=== PATIENT | female | born 1980 | race Caucasian/White ===

== ENCOUNTER 2023-03-25 14:15 | Inpatient (IN) | payer OTHER ==
[~2023-03-25] VITALS: Ht 170.2 cm; Wt 63.5 kg
[2023-03-25 14:47] VITALS: BP 123/86; PULSE 111; RESP 18; TEMP 97.7; O2SAT 98
[2023-03-25 15:52] LABS: HEMATOCRIT 33.9 % (36-48); HEMOGLOBIN 11.6 g/dL (12.0-16.0); MEAN CORPUSCULAR HEMOGLOBIN 39 pg (27-31); MEAN CORPUSCULAR HGB CONC 34 g/dL (33-37); MEAN CORPUSCULAR VOLUME 113.8 fL (80-94); PLATELET COUNT (AUTO) 441 K/uL (140-450); RED BLOOD CELL COUNT(AUTO) 2.98 MIL/uL (4.20-5.40); RED CELL DISTRIBUTION WIDTH 15.7 % (11.6-13.7); WHITE BLOOD COUNT (AUTO) 12.2 K/uL (4.8-10.8)
[2023-03-25 15:55] LABS: APPEARANCE,URINE CLEAR (CLEAR); BILIRUBIN,URINE 3+ (NEGATIVE); BLOOD, URINE NEGATIVE (NEGATIVE); COLOR,URINE YELLOW (YELLOW); LEUKOCYTE ESTERASE ,URINE TRACE (NEGATIVE); NITRITE, URINE POSITIVE (NEGATIVE); PH,URINE 5.5 (5.0-9.0); PROTEIN,URINE 1+ (NEGATIVE); UGLUCOSE TRACE (NEGATIVE)
[2023-03-25] MEDS: NACL 0.9% 1,000 ML IV SCH ×3 (15:56→18:46)
[2023-03-25 16:15] LABS: INR 0.94 (0.8-1.2); PARTIAL THROMBOPLASTIN TIME 22.3 secs (22-35.6); PROTHROMBIN TIME 9.9 secs (10.8-13.4)
[2023-03-25] MEDS ORDERED: ONDANSETRON 4 MG/2 ML VIAL IVP ONE (16:15)
[2023-03-25] MEDS ORDERED: MORPHINE SULFATE 4 MG/ML SYR IVP ONE (16:15)
[2023-03-25 16:16] LABS: EOSINOPHILS % (MANUAL) 0 % (0-4); LYMPHOCYTES % (MANUAL) 11 % (20-46); MONOCYTES % (MANUAL) 10 % (5-12)
[2023-03-25 16:17] LABS: ANISOCYTOSIS 1+; BASOPHILS % (MANUAL) 0 % (0-2); PLATELET ESTIMATE ADEQUATE; POIKILOCYTOSIS 3+; STOMATOCYTES 3+
[2023-03-25] MEDS ORDERED: NACL 0.9% 1,000 ML IV ONE (16:20)
[2023-03-25 16:22] LABS: LACTIC ACID 3.7 mmol/L (0.4-2.0)
[2023-03-25 16:25] LABS: ALANINE AMINOTRANSFERASE 93 U/L (12-78); ALKALINE PHOSPHATASE 220 U/L (50-136); ANION GAP 19.9 (8-16); ASPARTATE AMINOTRANSFERASE 246 U/L (15-37); CALCIUM 9.3 mg/dL (8.5-10.1); CARBON DIOXIDE 22.2 mmol/L (21-32); CHLORIDE 92 mmol/L (98-107); CREATININE 0.6 mg/dL (0.6-1.3); GFR ARICAN-AMERICAN 142 mL/min (>90); GFR NON ARICAN-AMERICAN 117 mL/min (>90); GLUCOSE 105 mg/dL (74-106); LIPASE 91 U/L (16-77); POTASSIUM 3.1 mmol/L (3.5-5.1); SODIUM SERUM 131 mmol/L (136-145); TOTAL BILIRUBIN 10.5 mg/dL (0.0-1.0); UREA NITROGEN, BLOOD 9 mg/dL (7-18)
[2023-03-25] MEDS ORDERED: cefTRIAXone 1,000 MG VIAL ONE (16:25)
[2023-03-25 16:26] LABS: ICTOTEST POSITIVE (NEGATIVE)
[2023-03-25 16:28] LABS: BACTERIA,URINE 1+ /HPF (None Seen); MUCUS,URINE 1+ /LPF (None Seen); OTHER CASTS, URINE EPITHELIAL CASTS 1+ /LPF (None Seen); RBC,URINE 0-5 /HPF (0-5); SQUAMOUS EPITHELIAL CELL,UR 20-50 /LPF (0-3 (FEW)); TRICHOMONAS,URINE None Seen /HPF (None Seen); YEAST,URINE None Seen /HPF (None Seen)
[2023-03-25 16:30] LABS: ACETAMINOPHEN < 0.5 ug/ml (10-30)
[2023-03-25] MEDS ORDERED: POTASSIUM CHLORIDE 20% 40 MEQ/15 ML UDC PO ONE (17:20)
[2023-03-25] MEDS ORDERED: CEPH-588 PO (17:20)
[2023-03-25] MEDS ORDERED: ONDANSETRON 4 MG/2 ML VIAL IVP PRN (18:10)
[2023-03-25] MEDS ORDERED: ACETAMINOPHEN 325 MG TAB PO PRN (18:10)
[2023-03-25] MEDS ORDERED: POTASSIUM CHLORIDE 10 MEQ TABER PO PRN (18:10)
[2023-03-25] MEDS ORDERED: KCL 20 MEQ IN 100 mL PREMIX 200 ML IV PRN (18:10)
[2023-03-25] MEDS ORDERED: LORazepam 2 MG/ML VIAL IVP ONE ×2 (21:05→22:40)
[2023-03-25] MEDS: LORazepam 1 MG TAB PO SCH (23:19)
[2023-03-25] MEDS: POTASSIUM CHL 20 MEQ/NACL 0.9% 1,000 ML IV SCH (23:20)
[2023-03-26] MEDS: LORazepam 1 MG TAB PO SCH ×3 (05:22→20:37)
[2023-03-26] MEDS: POTASSIUM CHL 20 MEQ/NACL 0.9% 1,000 ML IV SCH (06:45)
[2023-03-26 06:51] LABS: HEMATOCRIT 27.2 % (36-48); HEMOGLOBIN 9.6 g/dL (12.0-16.0); MEAN CORPUSCULAR HEMOGLOBIN 41 pg (27-31); MEAN CORPUSCULAR HGB CONC 35 g/dL (33-37); PLATELET COUNT (AUTO) 336 K/uL (140-450); RED BLOOD CELL COUNT(AUTO) 2.36 MIL/uL (4.20-5.40); RED CELL DISTRIBUTION WIDTH 15.9 % (11.6-13.7); WHITE BLOOD COUNT (AUTO) 8.9 K/uL (4.8-10.8)
[2023-03-26 07:00] LABS: INR 0.98 (0.8-1.2); PARTIAL THROMBOPLASTIN TIME 22.8 secs (22-35.6); PROTHROMBIN TIME 10.3 secs (10.8-13.4)
[2023-03-26 07:32] LABS: ANISOCYTOSIS 1+; PLATELET ESTIMATE ADEQUATE; STOMATOCYTES 2+
[2023-03-26 07:33] LABS: LYMPHOCYTES % (MANUAL) 13 % (20-46); MONOCYTES % (MANUAL) 9 % (5-12)
[2023-03-26 07:35] LABS: POIKILOCYTOSIS 2+
[2023-03-26 07:50] LABS: ALBUMIN 2.1 g/dL (3.4-5.0); ANION GAP 12.7 (8-16); CALCIUM 7.6 mg/dL (8.5-10.1); CARBON DIOXIDE 23.3 mmol/L (21-32); CREATININE 0.6 mg/dL (0.6-1.3); MAGNESIUM 1.3 mg/dL (1.8-2.4); PHOSPHORUS 2.5 mg/dL (2.5-4.9); TOTAL BILIRUBIN 8.6 mg/dL (0.0-1.0); TOTAL PROTEIN, SERUM 5.2 g/dL (6.4-8.2)
[2023-03-26] MEDS: NACL 0.9% 1,000 ML IV SCH (10:45)
[2023-03-26] MEDS: THIAMINE 100 MG TAB PO SCH (11:42)
[2023-03-26] MEDS: MULTIVITAMIN 1 TAB PO SCH (11:42)
[2023-03-26] MEDS: DOCUSATE SODIUM 100 MG GELCAP PO SCH (11:42)
[2023-03-26] MEDS: FOLIC ACID 1 MG TAB PO SCH (11:43)
[2023-03-26] MEDS: chlordiazePOXIDE 25 MG CAP PO SCH ×2 (13:18→17:41)
[2023-03-26 17:25] VITALS: BP 124/84; PULSE 102; RESP 20; TEMP 98.2; O2SAT 98
[2023-03-26] MEDS: HYDROmorphone 1 MG/ML AMP IVP PRN (17:43)
[2023-03-26 18:30] VITALS: PULSE 84
[2023-03-26 19:34] VITALS: PULSE 111; RESP 20
[2023-03-26 19:54] VITALS: PULSE 111
[2023-03-26 20:00] VITALS: BP 127/87; PULSE 103; PULSE 107; RESP 19; RESP 20; TEMP 97.8; O2SAT 98
[2023-03-27] VITALS: BP 120/84; PULSE 110; PULSE 112; RESP 19; TEMP 98.2; O2SAT 98
[2023-03-27] MEDS: HYDROmorphone 1 MG/ML AMP IVP PRN ×4 (00:20→22:07)
[2023-03-27] MEDS: NACL 0.9% 1,000 ML IV SCH ×3 (00:21→21:27)
[2023-03-27] MEDS: LORazepam 1 MG TAB PO PRN ×2 (00:21→15:36)
[2023-03-27 04:00] VITALS: BP 116/79; PULSE 94; PULSE 98; RESP 18; TEMP 98.4; O2SAT 98
[2023-03-27] MEDS: LORazepam 1 MG TAB PO SCH ×3 (05:08→21:26)
[2023-03-27 06:07] LABS: HEPATITIS A ANTIBODY IGM Negative (Negative); HEPATITIS B CORE AB TOTAL Negative (Negative); HEPATITIS B CORE, IGM Negative (Negative); HEPATITIS B SURFACE ANTIBODY Non Reactive (.); HEPATITIS B SURFACE ANTIGEN Negative (Negative); HEPATITIS C VIRUS ANTIBODY Non Reactive (Non Reactive)
[2023-03-27 07:05] LABS: BASOPHILS # (AUTO) 0.1 K/uL (0.00-0.22); BASOPHILS % (AUTO) 0.9 % (0.0-2.0); EOSINOPHILS # (AUTO) 0.1 K/uL (0-0.4); HEMATOCRIT 25.8 % (36-48); LYMPHOCYTES # (AUTO) 3.9 K/uL (2.5-16.5); LYMPHOCYTES % (AUTO) 42.9 % (20.5-51.1); MEAN CORPUSCULAR HEMOGLOBIN 40 pg (27-31); MEAN CORPUSCULAR HGB CONC 35 g/dL (33-37); MEAN CORPUSCULAR VOLUME 115.7 fL (80-94); MONOCYTES # (AUTO) 0.7 K/uL (0.8-1.0); MONOCYTES % (AUTO) 8.1 % (1.7-9.3); NEUTROPHILS # (AUTO) 4.3 K/uL (1.8-7.7); NEUTROPHILS % (AUTO) 47.1 % (42.2-75.2); PLATELET COUNT (AUTO) 320 K/uL (140-450); RED BLOOD CELL COUNT(AUTO) 2.23 MIL/uL (4.20-5.40); RED CELL DISTRIBUTION WIDTH 15.8 % (11.6-13.7); WHITE BLOOD COUNT (AUTO) 9.1 K/uL (4.8-10.8)
[2023-03-27 07:13] LABS: INR 0.98 (0.8-1.2); PROTHROMBIN TIME 10.3 secs (10.8-13.4)
[2023-03-27 07:16] LABS: ALBUMIN 2.1 g/dL (3.4-5.0); ANION GAP 12.9 (8-16); CALCIUM 7.9 mg/dL (8.5-10.1); CARBON DIOXIDE 24.8 mmol/L (21-32); CREATININE 0.5 mg/dL (0.6-1.3); MAGNESIUM 1.4 mg/dL (1.8-2.4); PHOSPHORUS 2.6 mg/dL (2.5-4.9); POTASSIUM 3.7 mmol/L (3.5-5.1); TOTAL BILIRUBIN 8.9 mg/dL (0.0-1.0); TOTAL PROTEIN, SERUM 5.2 g/dL (6.4-8.2)
[2023-03-27 08:00] VITALS: BP 108/71; PULSE 100; PULSE 102; RESP 15; TEMP 97.9; O2SAT 93
[2023-03-27] MEDS: DOCUSATE SODIUM 100 MG GELCAP PO SCH (09:06)
[2023-03-27] MEDS: FOLIC ACID 1 MG TAB PO SCH (09:06)
[2023-03-27] MEDS: THIAMINE 100 MG TAB PO SCH (09:06)
[2023-03-27] MEDS: MULTIVITAMIN 1 TAB PO SCH (09:06)
[2023-03-27] MEDS: chlordiazePOXIDE 25 MG CAP PO SCH ×3 (09:07→17:24)
[2023-03-27] MEDS: MAG SULF 2000 MG/WATER PREMIX 50 ML IV PRN (09:14)
[2023-03-27 09:15] LABS: HEPATITIS A ANTIBODY TOTAL Positive (Negative)
[2023-03-27 12:00] VITALS: BP 118/85; PULSE 112; PULSE 116; RESP 18; TEMP 98.3; O2SAT 96
[2023-03-27] MEDS: HYDROcodone/APAP 5/325 MG 1 TAB TAB PO PRN ×2 (12:04→16:07)
[2023-03-27] MEDS ORDERED: PANTOPRAZOLE 40 MG TABEC PO ONE (12:56)
[2023-03-27] MEDS: PANTOPRAZOLE 40 MG TABEC PO SCH ×2 (12:58→21:26)
[2023-03-27 16:00] VITALS: BP 116/81; PULSE 106; PULSE 110; RESP 18; TEMP 98.4; O2SAT 98
[2023-03-27 20:00] VITALS: BP 110/74; PULSE 101; PULSE 99; RESP 19; TEMP 98.4; O2SAT 93; O2SAT 98
[2023-03-28] VITALS: BP 101/72; PULSE 91; RESP 19; TEMP 97.8; O2SAT 98
[2023-03-28 04:00] VITALS: BP 109/74; PULSE 94; PULSE 99; RESP 18; TEMP 98.2; O2SAT 98
[2023-03-28] MEDS: LORazepam 1 MG TAB PO SCH ×3 (05:06→20:28)
[2023-03-28] MEDS: HYDROmorphone 1 MG/ML AMP IVP PRN ×5 (05:07→20:31)
[2023-03-28 06:53] LABS: ALBUMIN 2.5 g/dL (3.4-5.0); ANION GAP 10.8 (8-16); CALCIUM 8.3 mg/dL (8.5-10.1); CARBON DIOXIDE 27.2 mmol/L (21-32); CREATININE 0.5 mg/dL (0.6-1.3); MAGNESIUM 1.6 mg/dL (1.8-2.4); PHOSPHORUS 2.7 mg/dL (2.5-4.9); TOTAL BILIRUBIN 10.3 mg/dL (0.0-1.0); TOTAL PROTEIN, SERUM 6.2 g/dL (6.4-8.2)
[2023-03-28 06:54] LABS: INR 0.94 (0.8-1.2); PARTIAL THROMBOPLASTIN TIME 24.3 secs (22-35.6); PROTHROMBIN TIME 9.9 secs (10.8-13.4)
[2023-03-28 07:24] LABS: HEMOGLOBIN 10.3 g/dL (12.0-16.0); WHITE BLOOD COUNT (AUTO) 9.8 K/uL (4.8-10.8)
[2023-03-28 07:27] LABS: HEMATOCRIT 29.9 % (36-48); MEAN CORPUSCULAR HEMOGLOBIN 40 pg (27-31); MEAN CORPUSCULAR HGB CONC 35 g/dL (33-37); MEAN CORPUSCULAR VOLUME 115.7 fL (80-94); PLATELET COUNT (AUTO) 361 K/uL (140-450); RED BLOOD CELL COUNT(AUTO) 2.59 MIL/uL (4.20-5.40); RED CELL DISTRIBUTION WIDTH 16.2 % (11.6-13.7)
[2023-03-28 08:00] VITALS: BP 104/70; PULSE 94; PULSE 98; RESP 18; TEMP 98.7; O2SAT 96
[2023-03-28 08:20] LABS: BASOPHILS % (MANUAL) 0 % (0-2); BLASTS, MANUAL % 0 % (0-0); EOSINOPHILS % (MANUAL) 1 % (0-4); LYMPHOCYTES % (MANUAL) 17 % (20-46); METAMYELOCYTES % 0 % (0-0); MONOCYTES % (MANUAL) 4 % (5-12); MYELOCYTES % 0 % (0-0); OTHER CELLS,MANUAL % 0 (0-0); PLATELET ESTIMATE INCREASED; PROMYELOCYTES % 0 % (0-0)
[2023-03-28] MEDS: DOCUSATE SODIUM 100 MG GELCAP PO SCH (08:57)
[2023-03-28] MEDS: MULTIVITAMIN 1 TAB PO SCH (08:57)
[2023-03-28] MEDS: chlordiazePOXIDE 25 MG CAP PO SCH ×3 (08:57→17:00)
[2023-03-28] MEDS: PANTOPRAZOLE 40 MG TABEC PO SCH ×2 (08:57→20:28)
[2023-03-28] MEDS: FOLIC ACID 1 MG TAB PO SCH (08:57)
[2023-03-28] MEDS: THIAMINE 100 MG TAB PO SCH (08:58)
[2023-03-28] MEDS: MAG SULF 2000 MG/WATER PREMIX 50 ML IV PRN (09:03)
[2023-03-28 12:00] VITALS: BP 113/71; PULSE 107; PULSE 108; RESP 18; TEMP 98.8; O2SAT 96
[2023-03-28] MEDS: methylPREDNISolone SS 40 MG/ML VIAL IVP SCH ×2 (12:29→20:27)
[2023-03-28 16:00] VITALS: BP 120/82; PULSE 101; PULSE 99; RESP 18; TEMP 98.2; O2SAT 98
[2023-03-28] MEDS: NACL 0.9% 1,000 ML IV SCH (16:13)
[2023-03-28 20:00] VITALS: BP 115/68; PULSE 110; RESP 18; TEMP 97; O2SAT 96
[2023-03-29] VITALS: BP 105/71; PULSE 83; RESP 18; TEMP 97.2; O2SAT 96
[2023-03-29] MEDS: HYDROmorphone 1 MG/ML AMP IVP PRN ×5 (02:29→21:38)
[2023-03-29] MEDS: NACL 0.9% 1,000 ML IV SCH ×2 (02:29→17:06)
[2023-03-29] MEDS: LORazepam 1 MG TAB PO SCH ×3 (04:17→21:35)
[2023-03-29 06:59] LABS: HEMATOCRIT 24.4 % (36-48); HEMOGLOBIN 8.5 g/dL (12.0-16.0); MEAN CORPUSCULAR HEMOGLOBIN 40 pg (27-31); MEAN CORPUSCULAR HGB CONC 35 g/dL (33-37); MEAN CORPUSCULAR VOLUME 114.9 fL (80-94); PLATELET COUNT (AUTO) 362 K/uL (140-450); RED BLOOD CELL COUNT(AUTO) 2.13 MIL/uL (4.20-5.40); RED CELL DISTRIBUTION WIDTH 16.1 % (11.6-13.7); WHITE BLOOD COUNT (AUTO) 11.8 K/uL (4.8-10.8)
[2023-03-29 07:14] LABS: INR 1.05 (0.8-1.2); PARTIAL THROMBOPLASTIN TIME 22.1 secs (22-35.6)
[2023-03-29 07:38] LABS: ANION GAP 14.9 (8-16); CALCIUM 7.8 mg/dL (8.5-10.1); CREATININE 0.5 mg/dL (0.6-1.3); MAGNESIUM 1.7 mg/dL (1.8-2.4); PHOSPHORUS 2.9 mg/dL (2.5-4.9); POTASSIUM 3.9 mmol/L (3.5-5.1); TOTAL BILIRUBIN 8.2 mg/dL (0.0-1.0); TOTAL PROTEIN, SERUM 5.2 g/dL (6.4-8.2)
[2023-03-29 08:00] VITALS: BP 102/69; PULSE 83; PULSE 96; RESP 18; TEMP 98; O2SAT 97
[2023-03-29] MEDS: DOCUSATE SODIUM 100 MG GELCAP PO SCH (08:34)
[2023-03-29] MEDS: MULTIVITAMIN 1 TAB PO SCH (08:34)
[2023-03-29] MEDS: chlordiazePOXIDE 25 MG CAP PO SCH ×3 (08:34→16:59)
[2023-03-29] MEDS: FOLIC ACID 1 MG TAB PO SCH (08:34)
[2023-03-29] MEDS: PANTOPRAZOLE 40 MG TABEC PO SCH ×2 (08:35→20:21)
[2023-03-29] MEDS: methylPREDNISolone SS 40 MG/ML VIAL IVP SCH ×2 (08:35→21:35)
[2023-03-29] MEDS: THIAMINE 100 MG TAB PO SCH (08:35)
[2023-03-29 08:47] LABS: BASOPHILS % (MANUAL) 0 % (0-2); BLASTS, MANUAL % 0 % (0-0); EOSINOPHILS % (MANUAL) 0 % (0-4); LYMPHOCYTES % (MANUAL) 10 % (20-46); METAMYELOCYTES % 0 % (0-0); MONOCYTES % (MANUAL) 2 % (5-12); MYELOCYTES % 0 % (0-0); OTHER CELLS,MANUAL % 0 (0-0); PLASMA CELLS 0; PLATELET ESTIMATE ADEQUATE; PROMYELOCYTES % 0 % (0-0)
[2023-03-29 13:00] LABS: POTASSIUM,URINE RANDOM 72 mmol/L (12-75)
[2023-03-29 13:01] LABS: URINE SODIUM, RANDOM 20 mmol/l (40-220)
[2023-03-29] MEDS: MAGNESIUM OXIDE 400 MG TAB PO PRN (13:24)
[2023-03-29 16:00] VITALS: BP 107/69; PULSE 90; RESP 18; TEMP 97.1; O2SAT 100
[2023-03-29] MEDS: LACTULOSE 20 GM/30 ML UDC PO SCH ×2 (16:59→20:21)
[2023-03-29 20:00] VITALS: PULSE 66; RESP 17; O2SAT 98
[2023-03-29] MEDS: LORazepam 1 MG TAB PO PRN (20:20)
[2023-03-30] VITALS: BP 105/72; PULSE 90; RESP 17; TEMP 98; O2SAT 99
[2023-03-30] MEDS: HYDROmorphone 1 MG/ML AMP IVP PRN ×3 (02:33→13:28)
[2023-03-30] MEDS: LORazepam 1 MG TAB PO SCH (05:03)
[2023-03-30 06:54] LABS: BASOPHILS # (AUTO) 0.1 K/uL (0.00-0.22); BASOPHILS % (AUTO) 0.6 % (0.0-2.0); EOSINOPHILS # (AUTO) 0.1 K/uL (0-0.4); EOSINOPHILS % (AUTO) 0.6 % (0.0-4.0); HEMATOCRIT 24.6 % (36-48); HEMOGLOBIN 8.4 g/dL (12.0-16.0); LYMPHOCYTES # (AUTO) 3.2 K/uL (2.5-16.5); LYMPHOCYTES % (AUTO) 26.8 % (20.5-51.1); MEAN CORPUSCULAR HEMOGLOBIN 40 pg (27-31); MEAN CORPUSCULAR HGB CONC 34 g/dL (33-37); MONOCYTES # (AUTO) 6.5 K/uL (0.8-1.0); MONOCYTES % (AUTO) 54.6 % (1.7-9.3); NEUTROPHILS # (AUTO) 2.1 K/uL (1.8-7.7); NEUTROPHILS % (AUTO) 17.4 % (42.2-75.2); PLATELET COUNT (AUTO) 420 K/uL (140-450); RED BLOOD CELL COUNT(AUTO) 2.12 MIL/uL (4.20-5.40); RED CELL DISTRIBUTION WIDTH 16.9 % (11.6-13.7); WHITE BLOOD COUNT (AUTO) 11.9 K/uL (4.8-10.8)
[2023-03-30 07:10] LABS: INR 0.98 (0.8-1.2); PARTIAL THROMBOPLASTIN TIME 21.4 secs (22-35.6); PROTHROMBIN TIME 10.3 secs (10.8-13.4)
[2023-03-30 07:30] LABS: ALBUMIN 1.9 g/dL (3.4-5.0); ANION GAP 16.3 (8-16); CALCIUM 7.7 mg/dL (8.5-10.1); CARBON DIOXIDE 22.6 mmol/L (21-32); CREATININE 0.5 mg/dL (0.6-1.3); MAGNESIUM 1.6 mg/dL (1.8-2.4); PHOSPHORUS 3.1 mg/dL (2.5-4.9); POTASSIUM 3.9 mmol/L (3.5-5.1); TOTAL BILIRUBIN 7.2 mg/dL (0.0-1.0); TOTAL PROTEIN, SERUM 5.1 g/dL (6.4-8.2)
[2023-03-30 08:00] VITALS: BP 99/63; PULSE 83; PULSE 87; RESP 18; TEMP 97.6; O2SAT 97
[2023-03-30] MEDS: NACL 0.9% 1,000 ML IV SCH (08:44)
[2023-03-30] MEDS: methylPREDNISolone SS 40 MG/ML VIAL IVP SCH (08:45)
[2023-03-30] MEDS: DOCUSATE SODIUM 100 MG GELCAP PO SCH (08:45)
[2023-03-30] MEDS: chlordiazePOXIDE 25 MG CAP PO SCH ×2 (08:45→13:27)
[2023-03-30] MEDS: THIAMINE 100 MG TAB PO SCH (08:46)
[2023-03-30] MEDS: FOLIC ACID 1 MG TAB PO SCH (08:46)
[2023-03-30] MEDS: PANTOPRAZOLE 40 MG TABEC PO SCH (08:46)
[2023-03-30] MEDS: MULTIVITAMIN 1 TAB PO SCH (08:46)
[2023-03-30] MEDS: MAGNESIUM OXIDE 400 MG TAB PO PRN (08:47)
[2023-03-30] MEDS: LACTULOSE 20 GM/30 ML UDC PO SCH (08:47)
[2023-03-30] MEDS ORDERED: PANT40EC56 PO (13:17)
[2023-03-30] MEDS ORDERED: ATI.5 PO (13:17)
[2023-03-30] MEDS ORDERED: FOLI1TAB90 PO (13:17)
[2023-03-30] MEDS ORDERED: LACT10SO11 PO (13:17)
[2023-03-30] MEDS ORDERED: LIB25 PO (13:17)
[2023-03-30] MEDS ORDERED: HYDR-5191 PO (13:19)
== END 2023-03-30 14:32 | disposition home or self-care (01) | DRG 720 ==
LOC: MED 14:15 → MMU 18:07 → MTU 03-26 16:31
PROVIDERS: ADMIT Student in an Organized Health Care Education/Training Program; ATTEND Student in an Organized Health Care Education/Training Program
DX: A41.9 Sepsis, unspecified organism (principal); D69.6 Thrombocytopenia, unspecified; E44.1 Mild protein-calorie malnutrition; K70.10 Alcoholic hepatitis without ascites; E87.1 Hypo-osmolality and hyponatremia; E86.1 Hypovolemia; N30.00 Acute cystitis without hematuria; Y90.9 Presence of alcohol in blood, level not specified; F10.139 Alcohol abuse with withdrawal, unspecified; I10 Essential (primary) hypertension; K76.9 Liver disease, unspecified; E78.5 Hyperlipidemia, unspecified; I16.0 Hypertensive urgency; D53.9 Nutritional anemia, unspecified; K76.0 Fatty (change of) liver, not elsewhere classified; Z68.21 Body mass index [BMI] 21.0-21.9, adult
CPT/HCPCS: 36415; 80053; 81001; 82140; 82533; 83605; 83690; 83735; 83930; 83935; 84100; 84133; 84300; 84443; 84484; 85025; 85610; 85730; 86704; 86706; 86708; 86709; 86803; 87040; 87081; 87086; 87340; 93005; 96361; 96365; 96375; 99291; G0480; G0482; J0696; J1170; J2060; J2270; J2405; J2920; J3475; J7030; J7060

== ENCOUNTER 2023-04-15 16:30 | Inpatient (IN) | payer OTHER ==
[~2023-04-15] VITALS: Ht 170.2 cm; Wt 77.1 kg
[~2023-04-15 16:30] MED LIST: ATI.5 PO; CHLO-1446 PO; FOLI1TAB90 PO; HYDR-5191 PO; LACT10SO11 PO; PANT40EC56 PO
[2023-04-15 17:32] VITALS: BP 104/69; PULSE 109; RESP 16; TEMP 98.1; O2SAT 100
[2023-04-15 18:22] LABS: HEMATOCRIT 34.4 % (36-48); HEMOGLOBIN 11.8 g/dL (12.0-16.0); MEAN CORPUSCULAR HEMOGLOBIN 39 pg (27-31); MEAN CORPUSCULAR HGB CONC 34 g/dL (33-37); PLATELET COUNT (AUTO) 491 K/uL (140-450); RED BLOOD CELL COUNT(AUTO) 3.05 MIL/uL (4.20-5.40); RED CELL DISTRIBUTION WIDTH 15.3 % (11.6-13.7); WHITE BLOOD COUNT (AUTO) 18.1 K/uL (4.8-10.8)
[2023-04-15 18:33] LABS: INR 1.23 (0.8-1.2); PARTIAL THROMBOPLASTIN TIME 26.7 secs (22-35.6); PROTHROMBIN TIME 12.8 secs (10.8-13.4)
[2023-04-15 18:42] LABS: ANION GAP 15.3 (8-16); CALCIUM 8.4 mg/dL (8.5-10.1); CARBON DIOXIDE 23.3 mmol/L (21-32); CREATININE 1.7 mg/dL (0.6-1.3); POTASSIUM 3.6 mmol/L (3.5-5.1); TOTAL BILIRUBIN 22.3 mg/dL (0.0-1.0); TOTAL PROTEIN, SERUM 5.5 g/dL (6.4-8.2)
[2023-04-15 18:45] LABS: LACTIC ACID 0.7 mmol/L (0.4-2.0)
[2023-04-15 19:04] LABS: BASOPHILS % (MANUAL) 0 % (0-2); EOSINOPHILS % (MANUAL) 0 % (0-4); LYMPHOCYTES % (MANUAL) 6 % (20-46); MONOCYTES % (MANUAL) 14 % (5-12)
[2023-04-15 19:05] LABS: METAMYELOCYTES % 2 % (0-0); MYELOCYTES % 2 % (0-0); PLATELET ESTIMATE INCREASED; SMUDGE CELLS FEW
[2023-04-15] MEDS: ALBUMIN HUMAN 5 % 250 ML IV ONE (19:30)
[2023-04-15] MEDS: NACL 0.9% 500 ML IV ONE (20:15)
[2023-04-15] MEDS ORDERED: cefTRIAXone 1,000 MG VIAL ONE (20:56)
[2023-04-15] MEDS ORDERED: ACETAMINOPHEN 325 MG TAB PO PRN (21:15)
[2023-04-15] MEDS: MORPHINE SULFATE 2 MG/ML SYR IVP PRN (22:11)
[2023-04-16] VITALS (11 sets, daily range): BP systolic 96–138; BP diastolic 54–76; PULSE 70–108; RESP 16–20; TEMP 97.2–98.7; O2SAT 96–100
[2023-04-16 06:51] LABS: ALBUMIN 1.5 g/dL (3.4-5.0); ANION GAP 15.7 (8-16); CARBON DIOXIDE 22.1 mmol/L (21-32); CREATININE 1.6 mg/dL (0.6-1.3); MAGNESIUM 1.8 mg/dL (1.8-2.4); POTASSIUM 3.8 mmol/L (3.5-5.1); TOTAL BILIRUBIN 17.9 mg/dL (0.0-1.0); TOTAL PROTEIN, SERUM 4.3 g/dL (6.4-8.2)
[2023-04-16 06:56] LABS: HEMOGLOBIN 9.7 g/dL (12.0-16.0); MEAN CORPUSCULAR HEMOGLOBIN 38 pg (27-31); MEAN CORPUSCULAR HGB CONC 34 g/dL (33-37); MEAN CORPUSCULAR VOLUME 113.2 fL (80-94); PLATELET COUNT (AUTO) 394 K/uL (140-450); RED BLOOD CELL COUNT(AUTO) 2.56 MIL/uL (4.20-5.40); WHITE BLOOD COUNT (AUTO) 14.8 K/uL (4.8-10.8)
[2023-04-16 07:39] LABS: LYMPHOCYTES % (MANUAL) 9 % (20-46); MONOCYTES % (MANUAL) 6 % (5-12)
[2023-04-16] MEDS: MORPHINE SULFATE 4 MG/ML SYR IVP PRN (17:12)
[2023-04-16] MEDS: ONDANSETRON 4 MG/2 ML VIAL IVP PRN (20:03)
[2023-04-16] MEDS: cefTRIAXone 1,000 MG VIAL ONE (21:33)
[2023-04-16] MEDS: LORazepam 2 MG/ML VIAL IVP PRN (21:52)
[2023-04-17] VITALS: BP 101/64; PULSE 84; PULSE 94; RESP 18; TEMP 97.7; TEMP 98; O2SAT 96
[2023-04-17 04:00] VITALS: BP 113/64; PULSE 107; RESP 17; TEMP 98.3; O2SAT 96
[2023-04-17 08:00] VITALS: BP 93/60; PULSE 94; RESP 18; TEMP 97.3; O2SAT 96
[2023-04-17] MEDS: FUROSEMIDE 40 MG/4 ML VIAL IVP SCH (09:00)
[2023-04-17] MEDS: LACTULOSE 20 GM/30 ML UDC PO SCH (09:07)
[2023-04-17 12:00] VITALS: BP 95/58; PULSE 97; RESP 18; TEMP 97.7; O2SAT 94
[2023-04-17] MEDS: ALBUMIN HUMAN 25% 100 ML IV SCH (12:07)
[2023-04-17] MEDS: MIDODRINE 5 MG TAB PO SCH (12:25)
[2023-04-17] MEDS: HYDROcodone/APAP 5/325 MG 1 TAB TAB PO PRN (12:25)
[2023-04-17 13:20] LABS: BASOPHILS # (AUTO) 0.1 K/uL (0.00-0.22); BASOPHILS % (AUTO) 0.8 % (0.0-2.0); EOSINOPHILS # (AUTO) 0.1 K/uL (0-0.4); EOSINOPHILS % (AUTO) 0.9 % (0.0-4.0); HEMATOCRIT 32.2 % (36-48); LYMPHOCYTES # (AUTO) 2.2 K/uL (2.5-16.5); LYMPHOCYTES % (AUTO) 12.8 % (20.5-51.1); MEAN CORPUSCULAR HEMOGLOBIN 38 pg (27-31); MEAN CORPUSCULAR HGB CONC 34 g/dL (33-37); MEAN CORPUSCULAR VOLUME 110.9 fL (80-94); MONOCYTES # (AUTO) 2.6 K/uL (0.8-1.0); MONOCYTES % (AUTO) 14.9 % (1.7-9.3); NEUTROPHILS # (AUTO) 12.3 K/uL (1.8-7.7); NEUTROPHILS % (AUTO) 70.6 % (42.2-75.2); PLATELET COUNT (AUTO) 466 K/uL (140-450); RED CELL DISTRIBUTION WIDTH 15.2 % (11.6-13.7); WHITE BLOOD COUNT (AUTO) 17.4 K/uL (4.8-10.8)
[2023-04-17 13:48] LABS: ALBUMIN 2.1 g/dL (3.4-5.0); ANION GAP 17.3 (8-16); CALCIUM 8.3 mg/dL (8.5-10.1); CARBON DIOXIDE 21.7 mmol/L (21-32); CREATININE 1.8 mg/dL (0.6-1.3); TOTAL BILIRUBIN 21.8 mg/dL (0.0-1.0); TOTAL PROTEIN, SERUM 5.2 g/dL (6.4-8.2)
== END 2023-04-17 15:43 | disposition left against medical advice (07) | DRG 720 ==
LOC: MED 16:30 → MTU 21:20
PROVIDERS: ADMIT Hospitalist; ATTEND Hospitalist
DX: A41.9 Sepsis, unspecified organism (principal); K65.2 Spontaneous bacterial peritonitis; K70.31 Alcoholic cirrhosis of liver with ascites; K72.90 Hepatic failure, unspecified without coma; N17.9 Acute kidney failure, unspecified; E87.1 Hypo-osmolality and hyponatremia; R65.20 Severe sepsis without septic shock; Z79.899 Other long term (current) drug therapy
CPT/HCPCS: 36415; 76705; 80053; 82140; 83605; 83735; 85025; 85610; 85730; 87040; 96365; 99285; G0482; J0696; J1940; J2060; J2270; J2405; J7060; P9041; P9046; Q0092